=== PATIENT | male | born 1990 | race Caucasian/White ===

== ENCOUNTER 2020-01-16 23:55 | Emergency (ER) | payer OTHER ==
[~2020-01-16] VITALS: Ht 175.3 cm; Wt 81.7 kg
[2020-01-17 00:34] LABS: URINE BILIRUBIN NEGATIVE (Negative); URINE BLOOD NEGATIVE (Negative); URINE CLARITY CLEAR; URINE COLOR YELLOW; URINE GLUCOSE-RANDOM NEGATIVE (Negative); URINE KETONES NEGATIVE (Negative); URINE LEUKOCYTES-REFLEX NEGATIVE (Negative); URINE NITRITE-REFLEX NEGATIVE (Negative); URINE PROTEIN NEGATIVE (Negative); URINE SPECIFIC GRAVITY >= 1.030 (1.005-1.030); URINE UROBILINOGEN 0.2 E.U./dl (0.2-1.0)
[2020-01-17 01:04] LABS: ABSOLUTE EOSINOPHILS 0.1 thou/uL (0.0-0.7); ABSOLUTE LYMPHOCYTES 1.4 thou/uL (0.8-5.3); ABSOLUTE MONOCYTES 0.3 thou/uL (0.0-1.2); ABSOLUTE NEUTROPHILS 2.4 thou/uL (1.6-8.1); BASOPHILS 0.5 %; EOSINOPHILS 2.2 %; HEMATOCRIT 42.2 % (42.0-52.0); HEMOGLOBIN 14.2 gm/dL (14.0-18.0); LYMPHOCYTES 32.9 %; MCH 30.6 pg (26.0-34.0); MCHC 33.7 g/dL (28.0-37.0); MCV 90.9 fL (80.0-100.0); MONOCYTES 7.6 %; MPV 9.5 fl. (7.2-11.1); NUCLEATED RBCS 0 /100WBC; PLATELET COUNT* 161 thou/uL (150-400); POLYS 56.8 %; RBC 4.64 mil/uL (4.50-6.00); WBC 4.3 thou/uL (4.0-11.0)
[2020-01-17 01:09] LABS: CALCIUM 8.1 mg/dL (8.5-10.1); CREATININE 0.8 mg/dL (0.6-1.3); POTASSIUM 3.5 mmol/L (3.5-5.1)
[2020-01-17 01:13] LABS: ALBUMIN 3.7 g/dL (3.4-5.0); TOTAL BILIRUBIN 0.2 mg/dL (<0.1-1.0)
[2020-01-17] MEDS ORDERED: ZOFRAN ODT4 MG PO (02:39)
[2020-01-17] MEDS ORDERED: PROTONIX40 MG PO (02:39)
[2020-01-17 03:29] VITALS: BP 108/80
== END 2020-01-17 03:32 | disposition home or self-care (01) ==
LOC: M.ERS 23:55
PROVIDERS: Emergency Medicine
DX: R10.13 Epigastric pain (principal); R10.11 Right upper quadrant pain; K92.0 Hematemesis; K92.1 Melena; F10.920 Alcohol use, unspecified with intoxication, uncomplicated; Y90.6 Blood alcohol level of 120-199 mg/100 ml